=== PATIENT | male | born 1940 | race Caucasian/White ===

== ENCOUNTER 2020-10-01 09:00 | Inpatient (IN) | payer OTHER, BC ==
[2020-10-12 13:36] VITALS: BMI 26.1
[2020-10-16] MEDS ORDERED: DEXMEDETOMIDINE HCL 200 MCG/2 ML IVPB ONE (06:21)
[2020-10-16] MEDS ORDERED: ACETAMINOPHEN INJECTION 100 ML IVPB ONE ×2 (06:22→10:04)
[2020-10-16] MEDS ORDERED: ETOMIDATE 20 MG/10 ML AMPUL IVPUSH ONE (06:53)
[2020-10-16] MEDS ORDERED: TRANEXAMIC ACID 1000 MG/10 ML VIAL ONE (06:53)
[2020-10-16] MEDS ORDERED: LIDOCAINE HCL/PF 2% SDV 5ML VIAL ONE (06:53)
[2020-10-16] MEDS ORDERED: LIDOCAINE HCL 2% JELLY (5 ML/TUBE) ONE (06:53)
[2020-10-16] MEDS ORDERED: ceFAZolin SODIUM 1 GM VIAL ONE ×2 (06:53→11:06)
[2020-10-16] MEDS ORDERED: ONDANSETRON 4 MG/2 ML VIAL ONE (06:53)
[2020-10-16] MEDS ORDERED: EPHEDRINE SULFATE/0.9% NACL/PF 50 MG/10 ML SYRINGE NR ONE ×4 (06:55→13:21)
[2020-10-16] MEDS ORDERED: ROCURONIUM BROMIDE 50 MG/5 ML SYRINGE ONE (06:56)
[2020-10-16] MEDS ORDERED: SUCCINYLCHOLINE CHLORIDE 200 MG/10 ML SYRINGE ONE (06:56)
[2020-10-16] MEDS ORDERED: PROPOFOL 20 ML ONE ×3 (06:57)
[2020-10-16] MEDS ORDERED: KETAMINE HCL 200 MG/20 ML VIAL ONE (06:58)
[2020-10-16] MEDS ORDERED: BUPIVACAINE LIPOSOME/PF (EXPAREL) 266 MG/20 ML VIAL ONE (09:12)
[2020-10-16] MEDS ORDERED: GENTAMICIN SO4 80 MG/2 ML VIAL ONE (09:12)
[2020-10-16] MEDS ORDERED: THROMBIN (BOVINE) 5,000 UNIT VIAL TP ONE ×3 (09:13→14:32)
[2020-10-16] MEDS ORDERED: VANCOMYCIN 1,000 MG VIAL (RESTRICTED TO ID ONLY) ONE (09:21)
[2020-10-16] MEDS ORDERED: fentaNYL CITRATE 250 MCG/5 ML VIAL ONE (10:04)
[2020-10-16] MEDS ORDERED: MORPHINE 5 MG/10 ML AMP - FOR COMPOUNDING USE ONLY ONE (10:04)
[2020-10-16] MEDS ORDERED: ceFAZolin SODIUM 1 GM VIAL IVPB ONE ×2 (10:25→13:50)
[2020-10-16] MEDS ORDERED: VANCOMYCIN 1,000 MG VIAL (RESTRICTED TO ID ONLY) IVPB ONE (10:45)
[2020-10-16] MEDS ORDERED: LIDOCAINE 1%/EPI 1:100000 (50 ML MULTI DOSE VIAL) INF ONE (10:49)
[2020-10-16] MEDS ORDERED: GLYCOPYRROLATE 0.2 MG/1 ML VIAL ONE (11:00)
[2020-10-16] MEDS ORDERED: NEOSTIGMINE METHYLSULFATE 0.5 MG/1 ML - 10 ML MDV ONE (11:01)
[2020-10-16] MEDS ORDERED: BUPIVACAINE HCL/PF 0.5% (5MG/ML) 10 ML VIAL IJ ONE ×2 (11:27→14:50)
[2020-10-16] MEDS ORDERED: BUPIVACAINE LIPOSOME/PF (EXPAREL) 266 MG/20 ML VIAL IJ ONE ×2 (11:28→14:50)
[2020-10-16] MEDS ORDERED: ALBUMIN HUMAN 5% 250 ML IV SOLUTION IVPB ONE (14:30)
[2020-10-16] MEDS ORDERED: ePHEDrine SULFATE 50 MG/1 ML AMPULE ONE ×2 (15:02→16:07)
[2020-10-16] MEDS ORDERED: PATIENT'S OWN MEDICATION (NON-FORMULARY) (Omeprazole [Omeprazole] 20 MG Tablet.Dr) PO PRN (15:14)
[2020-10-16] MEDS ORDERED: MAG HYDROX/AL HYDROX/SIMETH 30 ML UNIT-DOSE CUP PO PRN (15:15)
[2020-10-16] MEDS ORDERED: MAGNESIUM HYDROX 2400MG/30ML ORAL SUSPENSION 30 ML CUP PO PRN (15:15)
[2020-10-16] MEDS ORDERED: ONDANSETRON 4 MG/2 ML VIAL IVPUSH PRN ×2 (15:15→17:15)
[2020-10-16] MEDS ORDERED: diphenhydrAMINE HCL 25 MG CAPSULE (FP) PO PRN (17:15)
[2020-10-16] MEDS ORDERED: HEPARIN NA (PORCINE) 5,000 UNITS/ML 1ML VIAL SQ SCH (17:15)
[2020-10-16] MEDS ORDERED: NALOXONE HCL 0.4 MG/ML VIAL IVPUSH PRN (17:19)
[2020-10-16 17:41] LABS: HEMATOCRIT 37.4 % (35.4-49); HEMOGLOBIN 12.3 GM/dL (11.7-16.9); MCHC 32.8 g/dl (32.0-35.9); MEAN CELL VOLUME 85.4 fl (80-96); MEAN PLT VOLUME 7.1 fl (7.5-11.1); PLATELET COUNT 136 K/MM3 (134-434); RBC 4.38 M/mm3 (4.00-5.60); RDW 14.5 % (11.9-15.9); WHITE BLOOD COUNT 4.9 K/mm3 (4.0-10.0)
[2020-10-16 18:04] LABS: LACTIC ACID 2.1 mmol/L (0.4-2.0)
[2020-10-16] MEDS: LACTATED RINGERS SOLUTION 1,000 ML IV SCH (20:57)
[2020-10-16] MEDS: CEFAZOLIN 2 GM/D5W 2 GM/50 ML ML IVPB SCH (20:57)
[2020-10-16] MEDS: GABAPENTIN 300 MG CAPSULE PO SCH (21:29)
[2020-10-16] MEDS: ACETAMINOPHEN 325 MG TABLET (FP) PO SCH (21:43)
[2020-10-16] MEDS: SENNOSIDES/DOCUSATE COMBO (SENNA PLUS) TABLET (UD) PO SCH (21:44)
[2020-10-16] MEDS: DOCUSATE SODIUM 100 MG CAPSULE (FP) PO SCH (21:44)
[2020-10-16] MEDS ORDERED: LATANOPROST SCH (22:00)
[2020-10-16] MEDS ORDERED: TAMSULOSIN HCL 0.4 MG CAP PO SCH (22:00)
[2020-10-16] MEDS ORDERED: ATORVASTATIN CA 40 MG TABLET (FP) PO SCH (22:00)
[2020-10-16] MEDS ORDERED: PATIENT'S OWN MEDICATION (NON-FORMULARY) (Dorzolamide/Timolol/Pf [Timolol 0.5%-Dorzolamide OP SCH (22:00)
[2020-10-16] MEDS: DIGOXIN 0.125 MG TABLET (FP) PO SCH (22:14)
[2020-10-16] MEDS: SOTALOL HCL 80 MG TABLET (FP) PO SCH (22:14)
[2020-10-16] MEDS: MUPIROCIN 2% TOPICAL OINTMENT FOR DECOLONIZATION NS SCH (22:49)
[2020-10-17 00:21] LABS: LACTIC ACID 2.5 mmol/L (0.4-2.0)
[2020-10-17] MEDS: ACETAMINOPHEN 325 MG TABLET (FP) PO SCH ×4 (00:44→16:55)
[2020-10-17] MEDS ORDERED: LACTATED RINGERS SOLUTION 1000 ML INFUS.BAG IV ONE (01:00)
[2020-10-17] MEDS: CEFAZOLIN 2 GM/D5W 2 GM/50 ML ML IVPB SCH ×2 (01:27→08:00)
[2020-10-17 03:34] LABS: BLOOD UREA NITROGEN 18.4 mg/dL (7-18)
[2020-10-17 03:38] LABS: CREATININE 1.3 mg/dL (0.55-1.3)
[2020-10-17 03:50] LABS: LACTIC ACID 4.8 mmol/L (0.4-2.0)
[2020-10-17 03:51] LABS: CALCIUM 7.6 mg/dL (8.5-10.1)
[2020-10-17] MEDS: LACTATED RINGERS SOLUTION 1,000 ML IV SCH (04:00)
[2020-10-17] MEDS: DOCUSATE SODIUM 100 MG CAPSULE (FP) PO SCH ×3 (05:29→21:37)
[2020-10-17 06:31] LABS: BASO % 0.2 % (0-2.0); EOS % 0.4 % (0-4.5); HEMATOCRIT 35.1 % (35.4-49); HEMOGLOBIN 11.7 GM/dL (11.7-16.9); LYMPH % 6.4 % (8-40); MCH 28.1 pg (25.7-33.7); MCH 28.3 pg (25.7-33.7); MCHC 33.2 g/dl (32.0-35.9); MCHC 33.3 g/dl (32.0-35.9); MEAN CELL VOLUME 84.3 fl (80-96); MEAN CELL VOLUME 85.1 fl (80-96); MEAN PLT VOLUME 7.2 fl (7.5-11.1); MEAN PLT VOLUME 7.3 fl (7.5-11.1); MONO % 8.8 % (3.8-10.2); NEUT % 84.2 % (42.8-82.8); PLATELET COUNT 124 K/MM3 (134-434); PLATELET COUNT 125 K/MM3 (134-434); RBC 4.13 M/mm3 (4.00-5.60); RBC 4.16 M/mm3 (4.00-5.60); RDW 14.1 % (11.9-15.9); RDW 14.7 % (11.9-15.9); WHITE BLOOD COUNT 6.1 K/mm3 (4.0-10.0); WHITE BLOOD COUNT 6.2 K/mm3 (4.0-10.0)
[2020-10-17 06:48] LABS: INR 1.23 (0.83-1.09)
[2020-10-17 06:50] LABS: ACTIVATED PTT 24.7 SECONDS (25.2-36.5)
[2020-10-17 06:51] LABS: BLOOD UREA NITROGEN 18.3 mg/dL (7-18); CALCIUM 7.4 mg/dL (8.5-10.1); MAGNESIUM 1.4 mg/dL (1.8-2.4)
[2020-10-17 06:54] LABS: CREATININE 1.1 mg/dL (0.55-1.3)
[2020-10-17 06:55] LABS: PHOSPHOROUS 4.1 mg/dL (2.5-4.9)
[2020-10-17 06:56] LABS: BILIRUBIN,TOTAL 0.5 mg/dL (0.2-1)
[2020-10-17 06:58] LABS: ALBUMIN 2.8 g/dl (3.4-5.0); TOT PROT 4.9 g/dl (6.4-8.2)
[2020-10-17] MEDS ORDERED: FERROUS SO4 325 MG TABLET (FP) PO SCH (10:00)
[2020-10-17] MEDS ORDERED: LISINOPRIL 5 MG TABLET PO SCH (10:00)
[2020-10-17] MEDS ORDERED: oxyCODONE HCL 5 MG TABLET PO PRN ×4 (10:00→13:33)
[2020-10-17] MEDS ORDERED: PANTOPRAZOLE 40 MG TABLET PO SCH (10:00)
[2020-10-17] MEDS ORDERED: MULTIVITAMINS (DAILY MVI) TABLET (FP) PO SCH (10:00)
[2020-10-17] MEDS ORDERED: FOLIC ACID 1 MG TABLET (FP) PO SCH (10:00)
[2020-10-17] MEDS: SOTALOL HCL 80 MG TABLET (FP) PO SCH ×2 (10:25→22:02)
[2020-10-17] MEDS: MUPIROCIN 2% TOPICAL OINTMENT FOR DECOLONIZATION NS SCH (10:25)
[2020-10-17] MEDS: DIGOXIN 0.125 MG TABLET (FP) PO SCH ×2 (10:26→21:38)
[2020-10-17] MEDS: GABAPENTIN 300 MG CAPSULE PO SCH ×2 (10:26→21:37)
[2020-10-17] MEDS: SENNOSIDES/DOCUSATE COMBO (SENNA PLUS) TABLET (UD) PO SCH ×2 (10:27→21:36)
[2020-10-17] MEDS ORDERED: oxyCODONE HCL 10 MG SUSTAINED ACTING TABLET PO SCH ×2 (12:00→22:00)
[2020-10-17] MEDS ORDERED: ONDANSETRON 4 MG/2 ML VIAL IVPUSH PRN ×2 (13:33)
[2020-10-17] MEDS ORDERED: diphenhydrAMINE HCL 25 MG CAPSULE (FP) PO PRN (13:33)
[2020-10-17] MEDS ORDERED: MAG HYDROX/AL HYDROX/SIMETH 30 ML UNIT-DOSE CUP PO PRN (13:33)
[2020-10-17] MEDS ORDERED: NALOXONE HCL 0.4 MG/ML VIAL IVPUSH PRN (13:33)
[2020-10-17] MEDS ORDERED: PT OWN MED DRAWER 7, Y5N ONE (21:02)
[2020-10-17] MEDS: ATORVASTATIN CA 40 MG TABLET (FP) PO SCH (21:37)
[2020-10-17] MEDS: TAMSULOSIN HCL 0.4 MG CAP PO SCH (21:42)
[2020-10-17] MEDS ORDERED: PATIENT'S OWN MEDICATION (NON-FORMULARY) (Dorzolamide/Timolol/Pf [Timolol 0.5%-Dorzolamide OP SCH (22:00)
[2020-10-17] MEDS ORDERED: MUPIROCIN 2% TOPICAL OINTMENT FOR DECOLONIZATION NS SCH (22:00)
[2020-10-17] MEDS ORDERED: CHLORHEXIDINE GLUCONATE 4% CLEANSER FOR DECOLONIZATION TP SCH ×2 (22:00)
[2020-10-17] MEDS ORDERED: LATANOPROST 0.005% OPHTH SOLN 2.5ML BOTTLE OU SCH (22:00)
[2020-10-18] MEDS: ACETAMINOPHEN 325 MG TABLET (FP) PO SCH ×2 (01:55→06:13)
[2020-10-18] MEDS: SODIUM CHLORIDE 1,000 ML IV SCH (03:50)
[2020-10-18] MEDS: DOCUSATE SODIUM 100 MG CAPSULE (FP) PO SCH ×3 (06:15→21:24)
[2020-10-18] MEDS ORDERED: diphenhydrAMINE HCL 25 MG CAPSULE (FP) PO PRN (08:35)
[2020-10-18] MEDS ORDERED: ACETAMINOPHEN 325 MG TABLET (FP) PO PRN (08:35)
[2020-10-18 09:18] LABS: HEMATOCRIT 30.2 % (35.4-49); MCH 28.3 pg (25.7-33.7); MCHC 33.1 g/dl (32.0-35.9); MEAN CELL VOLUME 85.4 fl (80-96); MEAN PLT VOLUME 7.5 fl (7.5-11.1); PLATELET COUNT 97 K/MM3 (134-434); RBC 3.53 M/mm3 (4.00-5.60); RDW 14.5 % (11.9-15.9); WHITE BLOOD COUNT 7.5 K/mm3 (4.0-10.0)
[2020-10-18] MEDS: GABAPENTIN 300 MG CAPSULE PO SCH ×2 (10:07→21:23)
[2020-10-18] MEDS: oxyCODONE HCL 10 MG SUSTAINED ACTING TABLET PO PRN ×2 (10:07→21:00)
[2020-10-18] MEDS: MULTIVITAMINS (DAILY MVI) TABLET (FP) PO SCH (10:10)
[2020-10-18] MEDS: SENNOSIDES/DOCUSATE COMBO (SENNA PLUS) TABLET (UD) PO SCH ×2 (10:10→21:23)
[2020-10-18] MEDS: DIGOXIN 0.125 MG TABLET (FP) PO SCH ×2 (10:10→21:22)
[2020-10-18] MEDS: PANTOPRAZOLE 40 MG TABLET PO SCH (10:11)
[2020-10-18] MEDS: FOLIC ACID 1 MG TABLET (FP) PO SCH (10:11)
[2020-10-18] MEDS: FERROUS SO4 325 MG TABLET (FP) PO SCH (10:15)
[2020-10-18] MEDS: LISINOPRIL 5 MG TABLET PO SCH (10:16)
[2020-10-18] MEDS ORDERED: PT OWN MED DRAWER 7, Y5N ONE ×2 (10:17→20:36)
[2020-10-18] MEDS: SOTALOL HCL 80 MG TABLET (FP) PO SCH ×2 (10:18→21:23)
[2020-10-18] MEDS: DORZOLAMIDE 2% HCL OPHTHALMIC SOLUTION 10 ML BOTTLE OU SCH ×2 (10:19→21:43)
[2020-10-18] MEDS: TIMOLOL 0.5% OPHTHALMIC SOL 5 ML BOTTLE OU SCH ×2 (10:26→21:43)
[2020-10-18] MEDS: oxyCODONE HCL 5 MG TABLET PO PRN (14:17)
[2020-10-18] MEDS ORDERED: MAGNESIUM SULF 50% (8.12 MEQ/2 ML-1 GM VIAL) IVPB ONE (17:31)
[2020-10-18] MEDS ORDERED: HALOPERIDOL LACTATE 5 MG/ML IM ONE (21:21)
[2020-10-18] MEDS: ATORVASTATIN CA 40 MG TABLET (FP) PO SCH (21:22)
[2020-10-18] MEDS: TAMSULOSIN HCL 0.4 MG CAP PO SCH (21:24)
[2020-10-18] MEDS: LATANOPROST 0.005% OPHTH SOLN 2.5ML BOTTLE OU SCH (21:43)
[2020-10-19] MEDS: SODIUM CHLORIDE 1,000 ML IV SCH (03:00)
[2020-10-19] MEDS: oxyCODONE HCL 5 MG TABLET PO PRN ×3 (05:30→21:35)
[2020-10-19] MEDS: DOCUSATE SODIUM 100 MG CAPSULE (FP) PO SCH (05:30)
[2020-10-19 08:44] LABS: HEMATOCRIT 32.3 % (35.4-49); HEMOGLOBIN 10.8 GM/dL (11.7-16.9); MCH 28.1 pg (25.7-33.7); MCHC 33.4 g/dl (32.0-35.9); MEAN CELL VOLUME 84.3 fl (80-96); MEAN PLT VOLUME 7.7 fl (7.5-11.1); PLATELET COUNT 112 K/MM3 (134-434); RBC 3.83 M/mm3 (4.00-5.60); RDW 14.2 % (11.9-15.9); WHITE BLOOD COUNT 9.8 K/mm3 (4.0-10.0)
[2020-10-19 09:08] LABS: BLOOD UREA NITROGEN 13.3 mg/dL (7-18); MAGNESIUM 2.3 mg/dL (1.8-2.4)
[2020-10-19 09:11] LABS: CREATININE 0.8 mg/dL (0.55-1.3); PHOSPHOROUS 1.4 mg/dL (2.5-4.9)
[2020-10-19] MEDS: DIGOXIN 0.125 MG TABLET (FP) PO SCH ×2 (11:23→21:38)
[2020-10-19] MEDS: FERROUS SO4 325 MG TABLET (FP) PO SCH (11:23)
[2020-10-19] MEDS: GABAPENTIN 300 MG CAPSULE PO SCH ×2 (11:24→21:34)
[2020-10-19] MEDS: SENNOSIDES/DOCUSATE COMBO (SENNA PLUS) TABLET (UD) PO SCH ×2 (11:24→21:35)
[2020-10-19] MEDS: RIVAROXABAN 20 MG TABLET PO SCH (11:24)
[2020-10-19] MEDS: MULTIVITAMINS (DAILY MVI) TABLET (FP) PO SCH (11:24)
[2020-10-19] MEDS: LISINOPRIL 5 MG TABLET PO SCH (11:24)
[2020-10-19] MEDS: POLYETHYLENE GLYCOL 3350 119 GM BTL PO SCH (11:25)
[2020-10-19] MEDS: FOLIC ACID 1 MG TABLET (FP) PO SCH (11:26)
[2020-10-19] MEDS: SOTALOL HCL 80 MG TABLET (FP) PO SCH ×2 (11:26→21:41)
[2020-10-19] MEDS: PANTOPRAZOLE 40 MG TABLET PO SCH (11:27)
[2020-10-19] MEDS: TIMOLOL 0.5% OPHTHALMIC SOL 5 ML BOTTLE OU SCH ×2 (11:27→21:39)
[2020-10-19] MEDS: DORZOLAMIDE 2% HCL OPHTHALMIC SOLUTION 10 ML BOTTLE OU SCH ×2 (11:28→21:39)
[2020-10-19] MEDS ORDERED: SODIUM PHOSPHATE - 30 MM in DEXTROSE 5%-WATER - 500 ML IVPB ONE (14:00)
[2020-10-19] MEDS ORDERED: RIVAROXABAN 20 MG TABLET PO SCH (18:00)
[2020-10-19] MEDS: TAMSULOSIN HCL 0.4 MG CAP PO SCH (21:34)
[2020-10-19] MEDS: ATORVASTATIN CA 40 MG TABLET (FP) PO SCH (21:35)
[2020-10-19] MEDS: LATANOPROST 0.005% OPHTH SOLN 2.5ML BOTTLE OU SCH (21:39)
[2020-10-19] MEDS ORDERED: PT OWN MED DRAWER 7, Y5N ONE (21:40)
[2020-10-19] MEDS ORDERED: HALOPERIDOL LACTATE 5 MG/ML IM ONE ×2 (22:41→23:24)
[2020-10-19] MEDS: MELATONIN 5 MG TABLETS PO ONE ×2 (23:34→23:45)
[2020-10-20] MEDS: SODIUM CHLORIDE 1,000 ML IV SCH (03:55)
[2020-10-20 08:12] LABS: BASO % 0.2 % (0-2.0); EOS % 0.2 % (0-4.5); HEMATOCRIT 29.7 % (35.4-49); HEMOGLOBIN 10.1 GM/dL (11.7-16.9); LYMPH % 12.3 % (8-40); MCH 28.7 pg (25.7-33.7); MCHC 34.1 g/dl (32.0-35.9); MEAN CELL VOLUME 84.2 fl (80-96); MONO % 8.9 % (3.8-10.2); NEUT % 78.4 % (42.8-82.8); PLATELET COUNT 126 K/MM3 (134-434); RBC 3.53 M/mm3 (4.00-5.60); RDW 14.2 % (11.9-15.9); WHITE BLOOD COUNT 7.9 K/mm3 (4.0-10.0)
[2020-10-20 08:58] LABS: ALBUMIN 2.6 g/dl (3.4-5.0); BLOOD UREA NITROGEN 12.2 mg/dL (7-18); CALCIUM 7.9 mg/dL (8.5-10.1)
[2020-10-20 08:59] LABS: BILIRUBIN,TOTAL 0.9 mg/dL (0.2-1)
[2020-10-20 09:00] LABS: CREATININE 0.6 mg/dL (0.55-1.3); TOT PROT 5.4 g/dl (6.4-8.2)
[2020-10-20 09:01] LABS: PHOSPHOROUS 1.5 mg/dL (2.5-4.9)
[2020-10-20] MEDS ORDERED: SODIUM PHOSPHATE - 30 MM in DEXTROSE 5%-WATER - 500 ML IVPB ONE (10:00)
[2020-10-20] MEDS ORDERED: PT OWN MED DRAWER 7, Y5N ONE ×2 (10:10→22:13)
[2020-10-20] MEDS: MAGNESIUM HYDROX 2400MG/30ML ORAL SUSPENSION 30 ML CUP PO PRN (10:19)
[2020-10-20] MEDS: oxyCODONE HCL 5 MG TABLET PO PRN ×2 (10:19→22:07)
[2020-10-20] MEDS: PANTOPRAZOLE 40 MG TABLET PO SCH (10:19)
[2020-10-20] MEDS: FOLIC ACID 1 MG TABLET (FP) PO SCH (10:19)
[2020-10-20] MEDS: LISINOPRIL 5 MG TABLET PO SCH (10:19)
[2020-10-20] MEDS: SENNOSIDES/DOCUSATE COMBO (SENNA PLUS) TABLET (UD) PO SCH ×2 (10:21→22:10)
[2020-10-20] MEDS: FERROUS SO4 325 MG TABLET (FP) PO SCH (10:21)
[2020-10-20] MEDS: MULTIVITAMINS (DAILY MVI) TABLET (FP) PO SCH (10:22)
[2020-10-20] MEDS: TIMOLOL 0.5% OPHTHALMIC SOL 5 ML BOTTLE OU SCH ×2 (10:22→22:11)
[2020-10-20] MEDS: DIGOXIN 0.125 MG TABLET (FP) PO SCH ×2 (10:22→22:09)
[2020-10-20] MEDS: DORZOLAMIDE 2% HCL OPHTHALMIC SOLUTION 10 ML BOTTLE OU SCH ×2 (10:23→22:12)
[2020-10-20] MEDS: RIVAROXABAN 20 MG TABLET PO SCH (10:23)
[2020-10-20] MEDS: POLYETHYLENE GLYCOL 3350 119 GM BTL PO SCH (10:25)
[2020-10-20] MEDS: SOTALOL HCL 80 MG TABLET (FP) PO SCH ×2 (10:26→22:13)
[2020-10-20] MEDS: TAMSULOSIN HCL 0.4 MG CAP PO SCH (22:09)
[2020-10-20] MEDS: QUEtiapine FUMARATE 25 MG TABLET PO SCH (22:09)
[2020-10-20] MEDS: GABAPENTIN 300 MG CAPSULE PO SCH (22:09)
[2020-10-20] MEDS: ATORVASTATIN CA 40 MG TABLET (FP) PO SCH (22:09)
[2020-10-20] MEDS: LATANOPROST 0.005% OPHTH SOLN 2.5ML BOTTLE OU SCH (22:12)
[2020-10-21] MEDS: SODIUM CHLORIDE 1,000 ML IV SCH (03:45)
[2020-10-21] MEDS: oxyCODONE HCL 5 MG TABLET PO PRN ×2 (08:22→18:53)
[2020-10-21] MEDS ORDERED: BISACODYL 10 MG SUPP.RECT PR ONE (09:04)
[2020-10-21 09:07] LABS: BASO % 0.4 % (0-2.0); EOS % 0.7 % (0-4.5); HEMATOCRIT 32.5 % (35.4-49); HEMOGLOBIN 10.8 GM/dL (11.7-16.9); LYMPH % 15.9 % (8-40); MCHC 33.3 g/dl (32.0-35.9); MEAN CELL VOLUME 84.1 fl (80-96); PLATELET COUNT 152 K/MM3 (134-434); RBC 3.86 M/mm3 (4.00-5.60); RDW 14.4 % (11.9-15.9); WHITE BLOOD COUNT 7.7 K/mm3 (4.0-10.0)
[2020-10-21] MEDS: DIGOXIN 0.125 MG TABLET (FP) PO SCH ×2 (09:39→21:12)
[2020-10-21] MEDS: PANTOPRAZOLE 40 MG TABLET PO SCH (09:39)
[2020-10-21] MEDS: SENNOSIDES/DOCUSATE COMBO (SENNA PLUS) TABLET (UD) PO SCH ×2 (09:39→21:12)
[2020-10-21] MEDS: MAGNESIUM HYDROX 2400MG/30ML ORAL SUSPENSION 30 ML CUP PO PRN (09:39)
[2020-10-21] MEDS: MULTIVITAMINS (DAILY MVI) TABLET (FP) PO SCH (09:39)
[2020-10-21] MEDS: FOLIC ACID 1 MG TABLET (FP) PO SCH (09:39)
[2020-10-21] MEDS: LISINOPRIL 5 MG TABLET PO SCH (09:39)
[2020-10-21] MEDS: TIMOLOL 0.5% OPHTHALMIC SOL 5 ML BOTTLE OU SCH ×2 (09:40→21:15)
[2020-10-21] MEDS: RIVAROXABAN 20 MG TABLET PO SCH (09:40)
[2020-10-21] MEDS: DORZOLAMIDE 2% HCL OPHTHALMIC SOLUTION 10 ML BOTTLE OU SCH ×2 (09:40→21:14)
[2020-10-21] MEDS: POLYETHYLENE GLYCOL 3350 119 GM BTL PO SCH (09:40)
[2020-10-21 09:47] LABS: ALBUMIN 2.4 g/dl (3.4-5.0); BLOOD UREA NITROGEN 13.5 mg/dL (7-18); MAGNESIUM 2.1 mg/dL (1.8-2.4)
[2020-10-21 09:48] LABS: BILIRUBIN,TOTAL 0.8 mg/dL (0.2-1); TOT PROT 5.7 g/dl (6.4-8.2)
[2020-10-21 09:50] LABS: CREATININE 0.8 mg/dL (0.55-1.3)
[2020-10-21 09:51] LABS: PHOSPHOROUS 1.7 mg/dL (2.5-4.9)
[2020-10-21] MEDS: SOTALOL HCL 80 MG TABLET (FP) PO SCH ×2 (10:06→21:38)
[2020-10-21] MEDS ORDERED: SODIUM PHOSPHATE - 30 MM in DEXTROSE 5%-WATER - 500 ML IVPB ONE (10:06)
[2020-10-21] MEDS: ATORVASTATIN CA 40 MG TABLET (FP) PO SCH (21:12)
[2020-10-21] MEDS: TAMSULOSIN HCL 0.4 MG CAP PO SCH (21:12)
[2020-10-21] MEDS: QUEtiapine FUMARATE 25 MG TABLET PO SCH (21:13)
[2020-10-21] MEDS: GABAPENTIN 300 MG CAPSULE PO SCH (21:13)
[2020-10-21] MEDS ORDERED: PT OWN MED DRAWER 7, Y5N ONE ×2 (21:34→21:56)
[2020-10-21 21:57] LABS: EPI CELLS 5 /uL (0-25.1); HYALINE CASTS 0 /uL (0-3.1); PH,URINE 7.5 (5.0-8.0); URINE APPEARANCE CLEAR; URINE BACTERIA 96 /uL (0-1359); URINE BILIRUBIN NEGATIVE (NEGATIVE); URINE COLOR YELLOW; URINE GLUCOSE (UA) NEGATIVE (NEGATIVE); URINE KETONE NEGATIVE (NEGATIVE); URINE LEUK ESTERASE NEGATIVE (NEGATIVE); URINE NITRITE NEGATIVE (NEGATIVE); URINE PROTEIN 1+ (NEGATIVE); URINE RBC 9 /uL (0-23.9); URINE UROBILINOGEN 0.2 mg/dL (0.2-1.0); URINE WBC 6 /uL (0-25.8)
[2020-10-21] MEDS: LATANOPROST 0.005% OPHTH SOLN 2.5ML BOTTLE OU SCH (22:17)
[2020-10-22] MEDS: SODIUM CHLORIDE 1,000 ML IV SCH ×2 (04:56→06:18)
[2020-10-22] MEDS: oxyCODONE HCL 5 MG TABLET PO PRN ×2 (07:39→17:49)
[2020-10-22 07:42] LABS: BASO % 0.2 % (0-2.0); EOS % 1.3 % (0-4.5); HEMATOCRIT 32.7 % (35.4-49); HEMOGLOBIN 10.9 GM/dL (11.7-16.9); LYMPH % 18.4 % (8-40); MCH 28.1 pg (25.7-33.7); MCHC 33.4 g/dl (32.0-35.9); MEAN CELL VOLUME 84.1 fl (80-96); MEAN PLT VOLUME 7.5 fl (7.5-11.1); MONO % 10.5 % (3.8-10.2); NEUT % 69.6 % (42.8-82.8); PLATELET COUNT 209 K/MM3 (134-434); RBC 3.89 M/mm3 (4.00-5.60); RDW 14.2 % (11.9-15.9); WHITE BLOOD COUNT 7.4 K/mm3 (4.0-10.0)
[2020-10-22 08:07] LABS: ALBUMIN 2.4 g/dl (3.4-5.0)
[2020-10-22 08:08] LABS: BLOOD UREA NITROGEN 11.8 mg/dL (7-18); CALCIUM 7.9 mg/dL (8.5-10.1); MAGNESIUM 2.3 mg/dL (1.8-2.4)
[2020-10-22 08:11] LABS: CREATININE 0.6 mg/dL (0.55-1.3); PHOSPHOROUS 2.2 mg/dL (2.5-4.9)
[2020-10-22 08:12] LABS: BILIRUBIN,TOTAL 0.7 mg/dL (0.2-1); TOT PROT 5.6 g/dl (6.4-8.2)
[2020-10-22] MEDS: FOLIC ACID 1 MG TABLET (FP) PO SCH (09:37)
[2020-10-22] MEDS: RIVAROXABAN 20 MG TABLET PO SCH (09:37)
[2020-10-22] MEDS: DIGOXIN 0.125 MG TABLET (FP) PO SCH ×2 (09:37→21:29)
[2020-10-22] MEDS: LISINOPRIL 5 MG TABLET PO SCH (09:37)
[2020-10-22] MEDS: SENNOSIDES/DOCUSATE COMBO (SENNA PLUS) TABLET (UD) PO SCH ×2 (09:37→21:21)
[2020-10-22] MEDS: PANTOPRAZOLE 40 MG TABLET PO SCH (09:38)
[2020-10-22] MEDS: MULTIVITAMINS (DAILY MVI) TABLET (FP) PO SCH (09:38)
[2020-10-22] MEDS ORDERED: PT OWN MED DRAWER 7, Y5N ONE (09:39)
[2020-10-22] MEDS: SOTALOL HCL 80 MG TABLET (FP) PO SCH ×2 (09:40→21:26)
[2020-10-22] MEDS: TIMOLOL 0.5% OPHTHALMIC SOL 5 ML BOTTLE OU SCH ×2 (09:42→21:26)
[2020-10-22] MEDS: DORZOLAMIDE 2% HCL OPHTHALMIC SOLUTION 10 ML BOTTLE OU SCH ×2 (09:43→21:26)
[2020-10-22] MEDS: POLYETHYLENE GLYCOL 3350 119 GM BTL PO SCH (09:52)
[2020-10-22] MEDS ORDERED: NAPH,MB-DB/K PH,MBDB POWDER PACKET PO ONE (10:27)
[2020-10-22] MEDS: ATORVASTATIN CA 40 MG TABLET (FP) PO SCH (21:21)
[2020-10-22] MEDS: TAMSULOSIN HCL 0.4 MG CAP PO SCH (21:21)
[2020-10-22] MEDS: QUEtiapine FUMARATE 25 MG TABLET PO SCH (21:21)
[2020-10-22] MEDS: LATANOPROST 0.005% OPHTH SOLN 2.5ML BOTTLE OU SCH (21:26)
[2020-10-22] MEDS: ACETAMINOPHEN 325 MG TABLET (FP) PO PRN (21:29)
[2020-10-23] MEDS: SODIUM CHLORIDE 1,000 ML IV SCH (03:55)
[2020-10-23] MEDS: oxyCODONE HCL 5 MG TABLET PO PRN (06:05)
[2020-10-23] MEDS ORDERED: PT OWN MED DRAWER 7, Y5N ONE (09:53)
[2020-10-23] MEDS: SENNOSIDES/DOCUSATE COMBO (SENNA PLUS) TABLET (UD) PO SCH (09:54)
[2020-10-23] MEDS: PANTOPRAZOLE 40 MG TABLET PO SCH (09:54)
[2020-10-23] MEDS: DIGOXIN 0.125 MG TABLET (FP) PO SCH (09:54)
[2020-10-23] MEDS: RIVAROXABAN 20 MG TABLET PO SCH (09:54)
[2020-10-23] MEDS: SOTALOL HCL 80 MG TABLET (FP) PO SCH (09:54)
[2020-10-23] MEDS: MULTIVITAMINS (DAILY MVI) TABLET (FP) PO SCH (09:54)
[2020-10-23] MEDS: FOLIC ACID 1 MG TABLET (FP) PO SCH (09:55)
[2020-10-23] MEDS: LISINOPRIL 5 MG TABLET PO SCH (09:55)
[2020-10-23] MEDS: POLYETHYLENE GLYCOL 3350 119 GM BTL PO SCH (09:55)
[2020-10-23] MEDS: DORZOLAMIDE 2% HCL OPHTHALMIC SOLUTION 10 ML BOTTLE OU SCH (09:57)
[2020-10-23] MEDS: TIMOLOL 0.5% OPHTHALMIC SOL 5 ML BOTTLE OU SCH (09:57)
[2020-10-23 11:20] LABS: BASO % 0.3 % (0-2.0); EOS % 0.9 % (0-4.5); HEMATOCRIT 33.5 % (35.4-49); LYMPH % 16.6 % (8-40); MCH 27.9 pg (25.7-33.7); MCHC 32.9 g/dl (32.0-35.9); MEAN CELL VOLUME 84.6 fl (80-96); MEAN PLT VOLUME 7.5 fl (7.5-11.1); MONO % 9.9 % (3.8-10.2); NEUT % 72.3 % (42.8-82.8); PLATELET COUNT 302 K/MM3 (134-434); RBC 3.96 M/mm3 (4.00-5.60); RDW 14.2 % (11.9-15.9); WHITE BLOOD COUNT 7.9 K/mm3 (4.0-10.0)
[2020-10-23 11:45] LABS: ALBUMIN 2.4 g/dl (3.4-5.0); BLOOD UREA NITROGEN 14.1 mg/dL (7-18); CALCIUM 8.3 mg/dL (8.5-10.1); MAGNESIUM 2.2 mg/dL (1.8-2.4)
[2020-10-23 11:49] LABS: CREATININE 0.7 mg/dL (0.55-1.3)
[2020-10-23 11:50] LABS: BILIRUBIN,TOTAL 0.5 mg/dL (0.2-1); TOT PROT 5.8 g/dl (6.4-8.2)
[2020-10-23] MEDS: ACETAMINOPHEN 325 MG TABLET (FP) PO PRN (14:05)
[2020-10-23 14:29] VITALS: BP 131/73; PULSE 80; TEMP 98
== END 2020-10-23 17:28 | disposition home or self-care (01) | DRG 457 ==
LOC: J2C 10-16 05:13 → JICU 10-16 20:43 → J6S 10-17 15:27
PROVIDERS: ADMIT Neurological Surgery; ATTEND Internal Medicine
PROC: 0QP005Z Removal of External Fixation Device from Lumbar Vertebra, Open Approach (ICD-10-PCS; 2020-10-16)
PROC: 0SG1071 Fusion of 2 or more Lumbar Vertebral Joints with Autologous Tissue Substitute, Posterior Approach, Posterior Column, Open Approach (ICD-10-PCS; 2020-10-16)
PROC: 0SG3071 Fusion of Lumbosacral Joint with Autologous Tissue Substitute, Posterior Approach, Posterior Column, Open Approach (ICD-10-PCS; 2020-10-16)
PROC: B01BZZZ Fluoroscopy of Spinal Cord (ICD-10-PCS; 2020-10-16)
PROC: 4A1004G Monitoring of Central Nervous Electrical Activity, Intraoperative, Open Approach (ICD-10-PCS; 2020-10-16)
PROC: 0RGA071 Fusion of Thoracolumbar Vertebral Joint with Autologous Tissue Substitute, Posterior Approach, Posterior Column, Open Approach (ICD-10-PCS; principal; 2020-10-16 09:30)
DX: M41.86 Other forms of scoliosis, lumbar region (principal); E87.2 Acidosis; K91.89 Other postprocedural complications and disorders of digestive system; K56.7 Ileus, unspecified; I10 Essential (primary) hypertension; E78.5 Hyperlipidemia, unspecified; I48.91 Unspecified atrial fibrillation; R41.0 Disorientation, unspecified; D69.6 Thrombocytopenia, unspecified; E83.42 Hypomagnesemia; M47.26 Other spondylosis with radiculopathy, lumbar region; R45.1 Restlessness and agitation; Y83.9 Surgical procedure, unspecified as the cause of abnormal reaction of the patient, or of later complication, without mention of misadventure at the time of the procedure; H40.9 Unspecified glaucoma
CPT/HCPCS: 36415; 36430; 71046-TC-FY; 72131-TC; 74018-TC-FY; 80048; 80053; 80162; 81003; 82962; 83605; 83735; 84100; 85025; 85027; 85610; 85730; 86850; 86900; 86901; 86922; 87086; 87186; 93005; 93010; 94760; 97116-GP; 97161-GP; C9803; J0131; P9017; P9058; U0003; U0005

== ENCOUNTER 2021-05-04 04:09 | Inpatient (IN) | payer OTHER, BC ==
[2021-04-28 10:28] VITALS: BMI 25.0
[2021-05-04] MEDS ORDERED: ACETAMINOPHEN INJECTION 100 ML IVPB ONE (07:05)
[2021-05-04] MEDS ORDERED: DEXMEDETOMIDINE HCL 200 MCG/2 ML IVPB ONE (07:05)
[2021-05-04] MEDS ORDERED: GENTAMICIN SO4 80 MG/2 ML VIAL ONE (07:23)
[2021-05-04] MEDS ORDERED: LIDOCAINE 1%/EPI 1:100000 (20 ML MULTI DOSE VIAL) ONE (07:23)
[2021-05-04] MEDS ORDERED: THROMBIN (BOVINE) 20,000 UNIT VIAL TP ONE (07:23)
[2021-05-04] MEDS ORDERED: BUPIVACAINE LIPOSOME/PF (EXPAREL) 266 MG/20 ML VIAL ONE (07:24)
[2021-05-04] MEDS ORDERED: BUPIVACAINE HCL/PF 0.5% (5MG/ML) 10 ML VIAL ONE (07:24)
[2021-05-04] MEDS ORDERED: KETAMINE HCL 200 MG/20 ML VIAL ONE (07:26)
[2021-05-04] MEDS ORDERED: PROPOFOL 20 ML ONE ×2 (07:26)
[2021-05-04] MEDS ORDERED: fentaNYL CITRATE 250 MCG/5 ML VIAL ONE (07:26)
[2021-05-04] MEDS ORDERED: VANCOMYCIN 1,000 MG VIAL (RESTRICTED TO ID ONLY) ONE (08:21)
[2021-05-04] MEDS ORDERED: MORPHINE 5 MG/10 ML AMP - FOR COMPOUNDING USE ONLY ONE (08:38)
[2021-05-04] MEDS ORDERED: ceFAZolin SODIUM 1 GM VIAL IVPB ONE ×2 (09:00→12:00)
[2021-05-04] MEDS ORDERED: LIDOCAINE 1%/EPI 1:100000 (20 ML MULTI DOSE VIAL) IJ ONE (09:32)
[2021-05-04] MEDS ORDERED: HYDROGEN PEROXIDE 473 ML PO ONE (09:40)
[2021-05-04] MEDS ORDERED: THROMBIN (BOVINE) 5,000 UNIT VIAL TP ONE (09:40)
[2021-05-04] MEDS ORDERED: VANCOMYCIN 1,000 MG VIAL (RESTRICTED TO ID ONLY) IVPB ONE (09:40)
[2021-05-04] MEDS ORDERED: GENTAMICIN SO4 80 MG/2 ML VIAL IVPB ONE (09:40)
[2021-05-04] MEDS ORDERED: ROCURONIUM BROMIDE 50 MG/5 ML SYRINGE ONE (09:41)
[2021-05-04] MEDS ORDERED: ONDANSETRON 4 MG/2 ML VIAL ONE (11:24)
[2021-05-04] MEDS ORDERED: TRANEXAMIC ACID 1000 MG/10 ML VIAL ONE (11:24)
[2021-05-04] MEDS ORDERED: ceFAZolin SODIUM 1 GM VIAL ONE ×2 (11:24→17:22)
[2021-05-04] MEDS ORDERED: oxyCODONE HCL 5 MG TABLET PO PRN ×2 (12:28)
[2021-05-04] MEDS ORDERED: ONDANSETRON 4 MG/2 ML VIAL IVPUSH PRN ×2 (12:28→15:06)
[2021-05-04] MEDS ORDERED: BUPIVACAINE LIPOSOME/PF (EXPAREL) 266 MG/20 ML VIAL NR ONE (12:30)
[2021-05-04] MEDS ORDERED: BUPIVACAINE HCL/PF 0.5% (5MG/ML) 10 ML VIAL IJ ONE (12:30)
[2021-05-04] MEDS ORDERED: LACTATED RINGERS SOLUTION 1,000 ML/1,000 ML INFUS.BAG IV SCH (12:30)
[2021-05-04] MEDS ORDERED: DEXTROSE 5%-WATER 100 ML IVPB ONE (17:22)
[2021-05-04] MEDS: CEFAZOLIN 1 GM in DEXTROSE 5%-WATER 100 ML IVPB SCH (17:43)
[2021-05-04] MEDS: LACTATED RINGERS SOLUTION 1,000 ML IV SCH (17:46)
[2021-05-04] MEDS: DOCUSATE SODIUM 100 MG CAPSULE (FP) PO SCH ×2 (17:48→22:01)
[2021-05-04] MEDS: HEPARIN NA (PORCINE) 5,000 UNITS/ML 1ML VIAL SQ SCH ×3 (19:46→21:40)
[2021-05-04] MEDS: morphine SULFATE 4 MG/ML VIAL IVPUSH PRN (21:12)
[2021-05-04] MEDS ORDERED: ATORVASTATIN CA 40 MG TABLET (FP) PO SCH (22:00)
[2021-05-04] MEDS ORDERED: TAMSULOSIN HCL 0.4 MG CAP PO SCH (22:00)
[2021-05-04] MEDS ORDERED: LATANOPROST 0.005% OPHTH SOLN 2.5ML BOTTLE OU SCH (22:00)
[2021-05-04] MEDS ORDERED: PATIENT'S OWN MEDICATION (NON-FORMULARY) (Dorzolamide/Timolol/Pf [Timolol 0.5%-Dorzolamide OU SCH (22:00)
[2021-05-04] MEDS ORDERED: CHLORHEXIDINE GLUCONATE 4% CLEANSER FOR DECOLONIZATION TP SCH (22:00)
[2021-05-04] MEDS: DORZOLAMIDE 2% HCL OPHTHALMIC SOLUTION 10 ML BOTTLE OU SCH (22:01)
[2021-05-04] MEDS: SOTALOL HCL 80 MG TABLET (FP) PO SCH (22:01)
[2021-05-04] MEDS: MUPIROCIN 2% TOPICAL OINTMENT FOR DECOLONIZATION NS SCH (22:01)
[2021-05-04] MEDS: TIMOLOL 0.5% OPHTHALMIC SOL 5 ML BOTTLE OU SCH (22:02)
[2021-05-05] MEDS ORDERED: DEXTROSE 5%-WATER 100 ML IVPB ONE ×3 (01:55→17:49)
[2021-05-05] MEDS ORDERED: ceFAZolin SODIUM 1 GM VIAL ONE ×3 (01:55→17:49)
[2021-05-05] MEDS: CEFAZOLIN 1 GM in DEXTROSE 5%-WATER 100 ML IVPB SCH ×3 (01:59→17:50)
[2021-05-05] MEDS: LACTATED RINGERS SOLUTION 1,000 ML IV SCH ×3 (02:26→19:35)
[2021-05-05] MEDS: HEPARIN NA (PORCINE) 5,000 UNITS/ML 1ML VIAL SQ SCH (04:06)
[2021-05-05] MEDS: diphenhydrAMINE HCL 25 MG CAPSULE (FP) PO PRN ×2 (04:17→09:26)
[2021-05-05] MEDS: DOCUSATE SODIUM 100 MG CAPSULE (FP) PO SCH ×3 (05:32→21:30)
[2021-05-05 07:05] LABS: HEMATOCRIT 32.9 % (35.4-49); MCH 28.1 pg (25.7-33.7); MCHC 33.3 g/dl (32.0-35.9); MEAN CELL VOLUME 84.4 fl (80-96); MEAN PLT VOLUME 7.7 fl (7.5-11.1); PLATELET COUNT 139 10^3/uL (134-434); RDW 13.6 % (11.9-15.9); WHITE BLOOD COUNT 6.2 K/mm3 (4.0-10.0)
[2021-05-05 07:21] LABS: CALCIUM 8.5 mg/dL (8.5-10.1)
[2021-05-05 07:22] LABS: BLOOD UREA NITROGEN 14.5 mg/dL (7-18)
[2021-05-05] MEDS: morphine SULFATE 4 MG/ML VIAL IVPUSH PRN ×2 (09:05→13:21)
[2021-05-05] MEDS ORDERED: PT OWN MED DRAWER 7, Y5N ONE ×2 (09:18→21:28)
[2021-05-05] MEDS: SOTALOL HCL 80 MG TABLET (FP) PO SCH (09:23)
[2021-05-05] MEDS: TIMOLOL 0.5% OPHTHALMIC SOL 5 ML BOTTLE OU SCH (09:25)
[2021-05-05] MEDS: DORZOLAMIDE 2% HCL OPHTHALMIC SOLUTION 10 ML BOTTLE OU SCH (09:25)
[2021-05-05] MEDS: MUPIROCIN 2% TOPICAL OINTMENT FOR DECOLONIZATION NS SCH (09:27)
[2021-05-05] MEDS ORDERED: LISINOPRIL 5 MG TABLET PO SCH (10:00)
[2021-05-05] MEDS ORDERED: DIGOXIN 0.125 MG TABLET PO SCH (10:00)
[2021-05-05] MEDS ORDERED: FERROUS SO4 325 MG TABLET (FP) PO SCH (10:00)
[2021-05-05] MEDS ORDERED: PANTOPRAZOLE 40 MG TABLET PO SCH (10:00)
[2021-05-05] MEDS ORDERED: FOLIC ACID 1 MG TABLET (FP) PO SCH (10:00)
[2021-05-05] MEDS ORDERED: ACETAMINOPHEN 1000 MG/100 ML VIAL IVPB ONE (10:35)
[2021-05-05] MEDS ORDERED: diphenhydrAMINE HCL 25 MG CAPSULE (FP) PO PRN (17:11)
[2021-05-05] MEDS ORDERED: morphine SULFATE 4 MG/ML VIAL IVPUSH PRN (17:11)
[2021-05-05] MEDS ORDERED: ONDANSETRON 4 MG/2 ML VIAL IVPUSH PRN (17:11)
[2021-05-05] MEDS ORDERED: oxyCODONE HCL 5 MG TABLET PO PRN ×2 (17:11)
[2021-05-05] MEDS ORDERED: CHLORHEXIDINE GLUCONATE 4% CLEANSER FOR DECOLONIZATION TP SCH (22:00)
[2021-05-05] MEDS ORDERED: MUPIROCIN 2% TOPICAL OINTMENT FOR DECOLONIZATION NS SCH (22:00)
[2021-05-05] MEDS ORDERED: LATANOPROST 0.005% OPHTH SOLN 2.5ML BOTTLE OU SCH (22:00)
[2021-05-05] MEDS ORDERED: TIMOLOL 0.5% OPHTHALMIC SOL 5 ML BOTTLE OU SCH (22:00)
[2021-05-05] MEDS ORDERED: ATORVASTATIN CA 40 MG TABLET (FP) PO SCH (22:00)
[2021-05-05] MEDS ORDERED: DORZOLAMIDE 2% HCL OPHTHALMIC SOLUTION 10 ML BOTTLE OU SCH (22:00)
[2021-05-05] MEDS ORDERED: SOTALOL HCL 80 MG TABLET (FP) PO SCH (22:00)
[2021-05-05] MEDS ORDERED: TAMSULOSIN HCL 0.4 MG CAP PO SCH (22:00)
[2021-05-06] MEDS: LACTATED RINGERS SOLUTION 1,000 ML IV SCH (00:58)
[2021-05-06] MEDS ORDERED: MELATONIN 5 MG TABLETS PO PRN (01:39)
[2021-05-06] MEDS ORDERED: DEXTROSE 5%-WATER 100 ML IVPB ONE ×3 (01:54→16:41)
[2021-05-06] MEDS ORDERED: ceFAZolin SODIUM 1 GM VIAL ONE ×3 (01:54→16:41)
[2021-05-06] MEDS: CEFAZOLIN 1 GM in DEXTROSE 5%-WATER 100 ML IVPB SCH ×3 (01:56→17:01)
[2021-05-06] MEDS: DOCUSATE SODIUM 100 MG CAPSULE (FP) PO SCH ×3 (05:59→21:08)
[2021-05-06] MEDS ORDERED: LACTATED RINGERS SOLUTION 1,000 ML IV SCH (08:17)
[2021-05-06] MEDS ORDERED: ONDANSETRON 4 MG/2 ML VIAL IVPUSH PRN (08:17)
[2021-05-06] MEDS ORDERED: diphenhydrAMINE HCL 25 MG CAPSULE (FP) PO PRN (08:17)
[2021-05-06] MEDS ORDERED: PANTOPRAZOLE 40 MG TABLET PO SCH (10:00)
[2021-05-06] MEDS ORDERED: LISINOPRIL 5 MG TABLET PO SCH (10:00)
[2021-05-06] MEDS ORDERED: FOLIC ACID 1 MG TABLET (FP) PO SCH (10:00)
[2021-05-06] MEDS ORDERED: FERROUS SO4 325 MG TABLET (FP) PO SCH (10:00)
[2021-05-06] MEDS ORDERED: DIGOXIN 0.125 MG TABLET PO SCH (10:00)
[2021-05-06] MEDS ORDERED: PT OWN MED DRAWER 7, Y5N ONE ×2 (10:08→21:06)
[2021-05-06] MEDS: PANTOPRAZOLE 40 MG TABLET PO SCH (10:43)
[2021-05-06] MEDS: FERROUS SO4 325 MG TABLET (FP) PO SCH (10:43)
[2021-05-06] MEDS: LISINOPRIL 5 MG TABLET PO SCH (10:43)
[2021-05-06] MEDS: FOLIC ACID 1 MG TABLET (FP) PO SCH (10:43)
[2021-05-06] MEDS: DIGOXIN 0.125 MG TABLET PO SCH (10:43)
[2021-05-06] MEDS: morphine SULFATE 4 MG/ML VIAL IVPUSH PRN ×2 (10:44→16:45)
[2021-05-06] MEDS: SOTALOL HCL 80 MG TABLET (FP) PO SCH ×2 (10:44→21:07)
[2021-05-06] MEDS: MUPIROCIN 2% TOPICAL OINTMENT FOR DECOLONIZATION NS SCH ×2 (10:46→21:08)
[2021-05-06] MEDS: TIMOLOL 0.5% OPHTHALMIC SOL 5 ML BOTTLE OU SCH ×2 (10:46→21:08)
[2021-05-06 10:47] LABS: HEMATOCRIT 28.8 % (35.4-49); HEMOGLOBIN 9.6 GM/dL (11.7-16.9); MCH 28.1 pg (25.7-33.7); MCHC 33.4 g/dl (32.0-35.9); MEAN PLT VOLUME 7.6 fl (7.5-11.1); PLATELET COUNT 122 10^3/uL (134-434); RBC 3.42 M/mm3 (4.00-5.60); RDW 13.5 % (11.9-15.9); WHITE BLOOD COUNT 9.6 K/mm3 (4.0-10.0)
[2021-05-06] MEDS: DORZOLAMIDE 2% HCL OPHTHALMIC SOLUTION 10 ML BOTTLE OU SCH ×2 (10:47→21:08)
[2021-05-06 11:07] LABS: ALBUMIN 2.3 g/dl (3.4-5.0); BLOOD UREA NITROGEN 12.1 mg/dL (7-18); CALCIUM 8.4 mg/dL (8.5-10.1)
[2021-05-06 11:10] LABS: CREATININE 0.9 mg/dL (0.55-1.3)
[2021-05-06 11:12] LABS: BILIRUBIN,TOTAL 0.4 mg/dL (0.2-1)
[2021-05-06] MEDS ORDERED: BISACODYL 10 MG SUPP.RECT PR ONE (12:08)
[2021-05-06] MEDS: RIVAROXABAN 20 MG TABLET PO SCH (17:01)
[2021-05-06] MEDS ORDERED: RIVAROXABAN 20 MG TABLET PO SCH (18:00)
[2021-05-06] MEDS: TAMSULOSIN HCL 0.4 MG CAP PO SCH (21:07)
[2021-05-06] MEDS: ATORVASTATIN CA 40 MG TABLET (FP) PO SCH (21:07)
[2021-05-06] MEDS: LATANOPROST 0.005% OPHTH SOLN 2.5ML BOTTLE OU SCH (21:08)
[2021-05-06] MEDS: CHLORHEXIDINE GLUCONATE 4% CLEANSER FOR DECOLONIZATION TP SCH (21:08)
[2021-05-06] MEDS: ACETAMINOPHEN 325 MG TABLET (FP) PO PRN (22:57)
[2021-05-07] MEDS ORDERED: ceFAZolin SODIUM 1 GM VIAL ONE ×3 (01:21→17:23)
[2021-05-07] MEDS ORDERED: DEXTROSE 5%-WATER 100 ML IVPB ONE ×3 (01:21→17:23)
[2021-05-07] MEDS: CEFAZOLIN 1 GM in DEXTROSE 5%-WATER 100 ML IVPB SCH ×3 (01:33→17:25)
[2021-05-07] MEDS: DOCUSATE SODIUM 100 MG CAPSULE (FP) PO SCH ×3 (06:22→21:07)
[2021-05-07 07:35] LABS: BASO % 0.1 % (0-2.0); EOS % 0.3 % (0-4.5); HEMATOCRIT 30.1 % (35.4-49); HEMOGLOBIN 10.1 GM/dL (11.7-16.9); LYMPH % 13.8 % (8-40); MCH 27.9 pg (25.7-33.7); MCHC 33.6 g/dl (32.0-35.9); MEAN CELL VOLUME 83.1 fl (80-96); MEAN PLT VOLUME 7.8 fl (7.5-11.1); MONO % 8.8 % (3.8-10.2); PLATELET COUNT 126 10^3/uL (134-434); RBC 3.62 M/mm3 (4.00-5.60); RDW 13.8 % (11.9-15.9); WHITE BLOOD COUNT 9.9 K/mm3 (4.0-10.0)
[2021-05-07 07:51] LABS: CALCIUM 8.6 mg/dL (8.5-10.1)
[2021-05-07 07:52] LABS: ALBUMIN 2.3 g/dl (3.4-5.0); BLOOD UREA NITROGEN 11.7 mg/dL (7-18)
[2021-05-07 07:55] LABS: CREATININE 0.7 mg/dL (0.55-1.3)
[2021-05-07 07:56] LABS: BILIRUBIN,TOTAL 0.4 mg/dL (0.2-1); TOT PROT 5.2 g/dl (6.4-8.2)
[2021-05-07] MEDS: SOTALOL HCL 80 MG TABLET (FP) PO SCH ×2 (10:50→21:07)
[2021-05-07] MEDS: MUPIROCIN 2% TOPICAL OINTMENT FOR DECOLONIZATION NS SCH ×2 (10:50→21:08)
[2021-05-07] MEDS: FOLIC ACID 1 MG TABLET (FP) PO SCH (10:50)
[2021-05-07] MEDS: POLYETHYLENE GLYCOL (HEALTHYLAX) 3350 17 GM PACKET PO SCH (10:51)
[2021-05-07] MEDS: PANTOPRAZOLE 40 MG TABLET PO SCH (10:51)
[2021-05-07] MEDS: FERROUS SO4 325 MG TABLET (FP) PO SCH (10:51)
[2021-05-07] MEDS: DIGOXIN 0.125 MG TABLET PO SCH (10:51)
[2021-05-07] MEDS: DORZOLAMIDE 2% HCL OPHTHALMIC SOLUTION 10 ML BOTTLE OU SCH ×2 (10:52→21:08)
[2021-05-07] MEDS: LISINOPRIL 5 MG TABLET PO SCH (10:52)
[2021-05-07] MEDS: TIMOLOL 0.5% OPHTHALMIC SOL 5 ML BOTTLE OU SCH ×2 (10:53→21:08)
[2021-05-07] MEDS: oxyCODONE HCL 5 MG TABLET PO PRN (14:03)
[2021-05-07] MEDS: RIVAROXABAN 20 MG TABLET PO SCH (17:25)
[2021-05-07] MEDS ORDERED: SIMETHICONE 80 MG TAB.CHEW (FP) PO ONE (18:04)
[2021-05-07] MEDS: morphine SULFATE 4 MG/ML VIAL IVPUSH PRN (18:04)
[2021-05-07] MEDS ORDERED: PT OWN MED DRAWER 7, Y5N ONE (21:05)
[2021-05-07] MEDS: ATORVASTATIN CA 40 MG TABLET (FP) PO SCH (21:07)
[2021-05-07] MEDS: TAMSULOSIN HCL 0.4 MG CAP PO SCH (21:08)
[2021-05-07] MEDS: LATANOPROST 0.005% OPHTH SOLN 2.5ML BOTTLE OU SCH (21:09)
[2021-05-07] MEDS: CHLORHEXIDINE GLUCONATE 4% CLEANSER FOR DECOLONIZATION TP SCH (23:03)
[2021-05-08] MEDS ORDERED: ceFAZolin SODIUM 1 GM VIAL ONE ×3 (01:08→16:43)
[2021-05-08] MEDS ORDERED: DEXTROSE 5%-WATER 100 ML IVPB ONE ×3 (01:08→16:43)
[2021-05-08] MEDS: CEFAZOLIN 1 GM in DEXTROSE 5%-WATER 100 ML IVPB SCH ×3 (01:18→17:43)
[2021-05-08] MEDS: DOCUSATE SODIUM 100 MG CAPSULE (FP) PO SCH ×3 (05:17→21:19)
[2021-05-08] MEDS: oxyCODONE HCL 5 MG TABLET PO PRN ×3 (05:20→17:44)
[2021-05-08] MEDS ORDERED: PT OWN MED DRAWER 7, Y5N ONE ×2 (09:08→21:24)
[2021-05-08] MEDS: POLYETHYLENE GLYCOL (HEALTHYLAX) 3350 17 GM PACKET PO SCH (09:23)
[2021-05-08] MEDS: SOTALOL HCL 80 MG TABLET (FP) PO SCH ×2 (09:24→21:25)
[2021-05-08] MEDS: PANTOPRAZOLE 40 MG TABLET PO SCH (09:24)
[2021-05-08] MEDS: MUPIROCIN 2% TOPICAL OINTMENT FOR DECOLONIZATION NS SCH ×2 (09:24→21:22)
[2021-05-08] MEDS: DIGOXIN 0.125 MG TABLET PO SCH (09:24)
[2021-05-08] MEDS: FOLIC ACID 1 MG TABLET (FP) PO SCH (09:24)
[2021-05-08] MEDS: FERROUS SO4 325 MG TABLET (FP) PO SCH (09:24)
[2021-05-08] MEDS: LISINOPRIL 5 MG TABLET PO SCH (09:24)
[2021-05-08] MEDS: TIMOLOL 0.5% OPHTHALMIC SOL 5 ML BOTTLE OU SCH ×2 (09:25→21:20)
[2021-05-08] MEDS: morphine SULFATE 4 MG/ML VIAL IVPUSH PRN (09:25)
[2021-05-08] MEDS: DORZOLAMIDE 2% HCL OPHTHALMIC SOLUTION 10 ML BOTTLE OU SCH ×2 (09:25→21:21)
[2021-05-08 11:32] LABS: HEMATOCRIT 29.5 % (35.4-49); HEMOGLOBIN 9.7 GM/dL (11.7-16.9); MCH 27.5 pg (25.7-33.7); MCHC 32.9 g/dl (32.0-35.9); MEAN CELL VOLUME 83.7 fl (80-96); PLATELET COUNT 166 10^3/uL (134-434); RBC 3.52 M/mm3 (4.00-5.60); RDW 13.7 % (11.9-15.9); WHITE BLOOD COUNT 8.1 K/mm3 (4.0-10.0)
[2021-05-08 11:39] LABS: ALBUMIN 2.2 g/dl (3.4-5.0); CALCIUM 8.6 mg/dL (8.5-10.1); CREATININE 0.9 mg/dL (0.55-1.3)
[2021-05-08 11:41] LABS: BILIRUBIN,TOTAL 0.4 mg/dL (0.2-1); TOT PROT 5.4 g/dl (6.4-8.2)
[2021-05-08 11:46] LABS: BLOOD UREA NITROGEN 13.8 mg/dL (7-18)
[2021-05-08] MEDS: RIVAROXABAN 20 MG TABLET PO SCH (17:44)
[2021-05-08] MEDS: TAMSULOSIN HCL 0.4 MG CAP PO SCH (21:19)
[2021-05-08] MEDS: ATORVASTATIN CA 40 MG TABLET (FP) PO SCH (21:19)
[2021-05-08] MEDS: LATANOPROST 0.005% OPHTH SOLN 2.5ML BOTTLE OU SCH (21:20)
[2021-05-08] MEDS: CHLORHEXIDINE GLUCONATE 4% CLEANSER FOR DECOLONIZATION TP SCH (21:22)
[2021-05-09] MEDS ORDERED: ceFAZolin SODIUM 1 GM VIAL ONE ×2 (01:36→10:04)
[2021-05-09] MEDS ORDERED: DEXTROSE 5%-WATER 100 ML IVPB ONE ×2 (01:37→10:04)
[2021-05-09] MEDS: CEFAZOLIN 1 GM in DEXTROSE 5%-WATER 100 ML IVPB SCH ×2 (01:41→10:10)
[2021-05-09] MEDS: oxyCODONE HCL 5 MG TABLET PO PRN (02:05)
[2021-05-09] MEDS: DOCUSATE SODIUM 100 MG CAPSULE (FP) PO SCH ×2 (06:00→13:11)
[2021-05-09 09:05] VITALS: TEMP 98.8
[2021-05-09] MEDS ORDERED: PT OWN MED DRAWER 7, Y5N ONE (10:06)
[2021-05-09] MEDS: FERROUS SO4 325 MG TABLET (FP) PO SCH (10:10)
[2021-05-09] MEDS: LISINOPRIL 5 MG TABLET PO SCH (10:10)
[2021-05-09] MEDS: PANTOPRAZOLE 40 MG TABLET PO SCH (10:10)
[2021-05-09] MEDS: POLYETHYLENE GLYCOL (HEALTHYLAX) 3350 17 GM PACKET PO SCH (10:10)
[2021-05-09] MEDS: SOTALOL HCL 80 MG TABLET (FP) PO SCH (10:10)
[2021-05-09] MEDS: DIGOXIN 0.125 MG TABLET PO SCH (10:11)
[2021-05-09] MEDS: ACETAMINOPHEN 325 MG TABLET (FP) PO PRN (10:11)
[2021-05-09] MEDS: FOLIC ACID 1 MG TABLET (FP) PO SCH (10:11)
[2021-05-09] MEDS: MUPIROCIN 2% TOPICAL OINTMENT FOR DECOLONIZATION NS SCH (10:12)
[2021-05-09] MEDS: DORZOLAMIDE 2% HCL OPHTHALMIC SOLUTION 10 ML BOTTLE OU SCH (10:33)
[2021-05-09] MEDS: TIMOLOL 0.5% OPHTHALMIC SOL 5 ML BOTTLE OU SCH (10:33)
[2021-05-09 14:09] VITALS: BP 102/40; PULSE 78
[2021-05-09] MEDS ORDERED: MINERAL OIL ENEMA 133 ML ENEMA RC ONE (14:30)
[2021-05-11] MEDS ORDERED: ERGOCALCIFEROL (VIT D2) 50,000 UNIT (1.25 MG) CAPSULE PO SCH ×3 (10:00)
== END 2021-05-09 15:00 | DRG 457 ==
LOC: J2C 04:09 → JICU 16:04 → J5S 05-07 13:25
PROVIDERS: ADMIT Neurological Surgery
PROC: 0SG1071 Fusion of 2 or more Lumbar Vertebral Joints with Autologous Tissue Substitute, Posterior Approach, Posterior Column, Open Approach (ICD-10-PCS; 2021-05-04)
PROC: 0RGA071 Fusion of Thoracolumbar Vertebral Joint with Autologous Tissue Substitute, Posterior Approach, Posterior Column, Open Approach (ICD-10-PCS; 2021-05-04)
PROC: 0SG3071 Fusion of Lumbosacral Joint with Autologous Tissue Substitute, Posterior Approach, Posterior Column, Open Approach (ICD-10-PCS; 2021-05-04)
PROC: 07DR0ZZ Extraction of Iliac Bone Marrow, Open Approach (ICD-10-PCS; 2021-05-04)
PROC: 4A11X4G Monitoring of Peripheral Nervous Electrical Activity, Intraoperative, External Approach (ICD-10-PCS; 2021-05-04)
PROC: 0RG7071 Fusion of 2 to 7 Thoracic Vertebral Joints with Autologous Tissue Substitute, Posterior Approach, Posterior Column, Open Approach (ICD-10-PCS; principal; 2021-05-04 08:00)
DX: M47.816 Spondylosis without myelopathy or radiculopathy, lumbar region (principal); S22.089A Unspecified fracture of T11-T12 vertebra, initial encounter for closed fracture; M48.56XA Collapsed vertebra, not elsewhere classified, lumbar region, initial encounter for fracture; M41.84 Other forms of scoliosis, thoracic region; M41.85 Other forms of scoliosis, thoracolumbar region; M41.86 Other forms of scoliosis, lumbar region; M41.87 Other forms of scoliosis, lumbosacral region; I10 Essential (primary) hypertension; E78.5 Hyperlipidemia, unspecified; I48.91 Unspecified atrial fibrillation; Z79.01 Long term (current) use of anticoagulants; N20.0 Calculus of kidney; X58.XXXA Exposure to other specified factors, initial encounter; Y93.9 Activity, unspecified; Y92.9 Unspecified place or not applicable; Y99.9 Unspecified external cause status
CPT/HCPCS: 36415; 72128-TC; 72131-TC; 76000-TC-FY; 80048; 80053; 85025; 85027; 86922; 93005; 93010; 94760; 97116-GP; 97162-GP; J0131; P9017

== ENCOUNTER 2024-08-20 05:20 | Inpatient (IN) | payer OTHER, BC ==
[2024-08-16 09:42] VITALS: BMI 22.1
[2024-08-20] MEDS: GABAPENTIN 300 MG CAPSULE PO ONE (06:50)
[2024-08-20] MEDS ORDERED: VANCOMYCIN 1,000 MG VIAL (RESTRICTED TO ID ONLY) ONE (06:58)
[2024-08-20] MEDS ORDERED: GENTAMICIN SO4 80 MG/2 ML VIAL ONE (06:58)
[2024-08-20] MEDS ORDERED: LIDOCAINE 1%/EPI 1:100000 (20 ML MULTI DOSE VIAL) ONE (06:58)
[2024-08-20] MEDS ORDERED: BUPIVACAINE LIPOSOME/PF (EXPAREL) 266 MG/20 ML VIAL ONE (06:59)
[2024-08-20] MEDS ORDERED: BUPIVACAINE HCL/PF 0.5% (5MG/ML) 10 ML VIAL ONE (06:59)
[2024-08-20] MEDS ORDERED: DEXMEDETOMIDINE HCL 200 MCG/2 ML IVPB ONE (08:15)
[2024-08-20] MEDS ORDERED: DEXAMETHASONE SOD PHOSPHATE 10 MG/1 ML VIAL ONE (08:16)
[2024-08-20] MEDS ORDERED: ceFAZolin SODIUM 1 GM VIAL ONE (08:33)
[2024-08-20] MEDS: LIDOCAINE 1%/EPI 1:100000 (20 ML MULTI DOSE VIAL) IJ ONE (08:52)
[2024-08-20] MEDS: ceFAZolin SODIUM 1 GM VIAL IVPB ONE (08:53)
[2024-08-20] MEDS: VANCOMYCIN 1 GM in NS (PRE-DOCKED) 1,000 MG/250 ML (RESTRICTED TO ID ONLY) IVPB ONE (09:03)
[2024-08-20] MEDS ORDERED: HYDROmorphone HCl 2 MG/ML VIAL ONE (09:06)
[2024-08-20] MEDS: THROMBIN (BOVINE) 20,000 UNIT VIAL TP ONE ×2 (09:19→10:00)
[2024-08-20] MEDS: GENTAMICIN 80MG PREMIX BAG IVPB ONE ×2 (09:20→10:20)
[2024-08-20] MEDS: HYDROGEN PEROXIDE 473 ML PO ONE ×2 (09:20→10:20)
[2024-08-20] MEDS ORDERED: ROCURONIUM BROMIDE 50 MG/5 ML SYRINGE ONE (09:35)
[2024-08-20] MEDS: BUPIVACAINE LIPOSOME/PF (EXPAREL) 266 MG/20 ML VIAL NR ONE ×2 (11:25→11:40)
[2024-08-20] MEDS: VANCOMYCIN 1 GM in D5W (PRE-DOCKED) 1,000 MG/250 ML (RESTRICTED TO ID ONLY IVPB ONE (11:25)
[2024-08-20] MEDS: BUPIVACAINE HCL/PF 0.5% (5MG/ML) 10 ML VIAL IJ ONE ×2 (11:26→11:40)
[2024-08-20] MEDS ORDERED: PROPOFOL 20 ML ONE (12:38)
[2024-08-20] MEDS ORDERED: ONDANSETRON 4 MG/2 ML VIAL IVPUSH PRN ×2 (13:02→13:10)
[2024-08-20] MEDS ORDERED: diphenhydrAMINE HCL 25 MG CAPSULE (FP) PO PRN (13:10)
[2024-08-20] MEDS ORDERED: oxyCODONE HCL 5 MG TABLET PO PRN (13:10)
[2024-08-20] MEDS ORDERED: PANTOPRAZOLE 40 MG TABLET PO PRN (13:14)
[2024-08-20] MEDS: LACTATED RINGERS SOLUTION 1,000 ML/1,000 ML INFUS.BAG IV SCH (14:09)
[2024-08-20] MEDS ORDERED: ACETAMINOPHEN INJECTION 100 ML ONE (14:22)
[2024-08-20 14:23] LABS: HEMATOCRIT 39.3 % (40.1-51.0); HEMOGLOBIN 12.2 g/dL (13.7-17.5); MEAN CELL VOLUME 86.4 fl (79.0-92.2); MEAN PLT VOLUME 9.7 fl (9.4-12.4); PLATELET COUNT # 140 x10^3/uL (163-337); RDW 13.4 % (12.6-16.6)
[2024-08-20] MEDS: ACETAMINOPHEN 1000 MG/100 ML BAG IVPB ONE ×2 (15:35→17:12)
[2024-08-20] MEDS: DOCUSATE SODIUM 100 MG CAPSULE (FP) PO SCH (17:13)
[2024-08-20] MEDS: HEPARIN NA (PORCINE) 5,000 UNITS/ML 1ML VIAL SQ SCH ×2 (17:13→23:29)
[2024-08-20] MEDS: CEFAZOLIN 1 GM/D5W 1 GM/50 ML BAG IVPB SCH (17:40)
[2024-08-20] MEDS: ATORVASTATIN CA 80 MG TABLET (FP) PO SCH (21:37)
[2024-08-20] MEDS: SOTALOL HCL 80 MG TABLET (FP) PO SCH (21:37)
[2024-08-20] MEDS: DORZOLAMIDE HCL/TIMOLOL OPHTHALMIC SOLUTION 10 ML BOTTLE OU SCH (21:38)
[2024-08-20] MEDS: LATANOPROST 0.005% OPHTH SOLN 2.5ML BOTTLE OU SCH (21:38)
[2024-08-20] MEDS: TAMSULOSIN HCL 0.4 MG CAP PO SCH (21:39)
[2024-08-20] MEDS: DIGOXIN 0.125 MG TABLET PO SCH (21:53)
[2024-08-21] MEDS: QUEtiapine FUMARATE 25 MG TABLET PO ONE ×2 (02:06→19:41)
[2024-08-21] MEDS: hydrOXYzine HCL 100 MG/2 ML VIAL IM ONE (03:04)
[2024-08-21] MEDS: HALOPERIDOL LACTATE 5 MG/ML IM ONE (09:28)
[2024-08-21] MEDS ORDERED: POLYETHYLENE GLYCOL (HEALTHYLAX) 3350 17 GM PACKET PO PRN (10:00)
[2024-08-21 11:13] LABS: HEMATOCRIT 32.9 % (40.1-51.0); HEMOGLOBIN 10.6 g/dL (13.7-17.5); MCHC 32.2 g/dl (32.3-36.5); MEAN CELL VOLUME 84.4 fl (79.0-92.2); MEAN PLT VOLUME 9.8 fl (9.4-12.4); PLATELET COUNT # 139 x10^3/uL (163-337); RDW 13.5 % (12.6-16.6)
[2024-08-21] MEDS: FERROUS SO4 325 MG TABLET (FP) PO SCH (11:16)
[2024-08-21] MEDS: FOLIC ACID 1 MG TABLET (FP) PO SCH (11:16)
[2024-08-21] MEDS: LISINOPRIL 5 MG TABLET PO SCH (11:16)
[2024-08-21] MEDS: LACTOBACILLUS ACIDOPHILUS 1 TABLET PO SCH (11:16)
[2024-08-21 11:45] LABS: BLOOD UREA NITROGEN 25.8 mg/dL (7-18); CALCIUM 8.6 mg/dL (8.5-10.1)
[2024-08-21 11:49] LABS: CREATININE 1.1 mg/dL (0.55-1.3)
[2024-08-21] MEDS: morphine SULFATE 4 MG/ML VIAL IVPUSH PRN (15:45)
[2024-08-21] MEDS ORDERED: QUEtiapine FUMARATE 25 MG TABLET PO SCH (22:00)
[2024-08-22] MEDS: HALOPERIDOL LACTATE 5 MG/ML IM ONE (01:05)
[2024-08-22 08:35] LABS: ABSOLUTE IMMATURE GRANULOCYTES 0.04 x10^3/uL (0.0-0.031); BASOPHILS # 0.02 x10^3/uL (0.01-0.08); EOSINOPHIL % 0.2 % (0.8-7.0); EOSINOPHILS # 0.02 x10^3/uL (0.04-0.54); HEMATOCRIT 31.8 % (40.1-51.0); HEMOGLOBIN 10.1 g/dL (13.7-17.5); MCHC 31.8 g/dl (32.3-36.5); MEAN CELL VOLUME 84.6 fl (79.0-92.2); MEAN PLT VOLUME 10.2 fl (9.4-12.4); MONOCYTE # 1.19 x10^3/uL (0.30-0.82); MONOCYTE % 12.2 % (5.3-12.2); PLATELET COUNT # 109 x10^3/uL (163-337); RDW 13.8 % (12.6-16.6)
[2024-08-22 08:55] LABS: POTASSIUM 3.9 mmol/L (3.5-5.1)
[2024-08-22 09:02] LABS: BLOOD UREA NITROGEN 21.5 mg/dL (7-18)
[2024-08-22 09:03] LABS: CALCIUM 8.5 mg/dL (8.5-10.1); MAGNESIUM 2.1 mg/dL (1.8-2.4)
[2024-08-22 09:04] LABS: ALBUMIN 2.8 g/dl (3.4-5.0)
[2024-08-22 09:06] LABS: CREATININE 0.9 mg/dL (0.55-1.3)
[2024-08-22 09:07] LABS: BILIRUBIN,TOTAL 0.8 mg/dL (0.2-1); TOT PROT 5.4 g/dl (6.4-8.2)
[2024-08-22] MEDS ORDERED: QUEtiapine FUMARATE 25 MG TABLET PO SCH (10:00)
[2024-08-22] MEDS: QUEtiapine FUMARATE 25 MG TABLET PO SCH ×2 (10:01→21:08)
[2024-08-22] MEDS: oxyCODONE HCL 5 MG TABLET PO PRN (11:01)
[2024-08-22 14:32] VITALS: RESP 18
[2024-08-22] MEDS: MAGNESIUM GLYCINATE 100 MG PO SCH (15:32)
[2024-08-22] MEDS: traMADol HCL 50 MG TABLET PO PRN (19:34)
[2024-08-22] MEDS ORDERED: DIGOXIN 0.125 MG TABLET PO SCH (22:00)
[2024-08-23] MEDS: DIGOXIN 0.125 MG TABLET PO SCH (09:19)
[2024-08-23] MEDS: PANTOPRAZOLE 40 MG TABLET PO SCH (09:19)
[2024-08-23 09:22] LABS: ABSOLUTE IMMATURE GRANULOCYTES 0.02 x10^3/uL (0.0-0.031); BASOPHILS # 0.03 x10^3/uL (0.01-0.08); EOSINOPHIL % 0.5 % (0.8-7.0); EOSINOPHILS # 0.05 x10^3/uL (0.04-0.54); HEMATOCRIT 32.9 % (40.1-51.0); HEMOGLOBIN 10.6 g/dL (13.7-17.5); MCHC 32.2 g/dl (32.3-36.5); MEAN CELL VOLUME 84.1 fl (79.0-92.2); MEAN PLT VOLUME 10.5 fl (9.4-12.4); MONOCYTE # 1.05 x10^3/uL (0.30-0.82); MONOCYTE % 10.9 % (5.3-12.2); PLATELET COUNT # 132 x10^3/uL (163-337); RDW 13.2 % (12.6-16.6)
[2024-08-23 09:48] LABS: POTASSIUM 3.7 mmol/L (3.5-5.1)
[2024-08-23 09:57] LABS: CALCIUM 8.6 mg/dL (8.5-10.1)
[2024-08-23 09:58] LABS: ALBUMIN 2.8 g/dl (3.4-5.0); BLOOD UREA NITROGEN 17.2 mg/dL (7-18); MAGNESIUM 2.1 mg/dL (1.8-2.4)
[2024-08-23 10:01] LABS: CREATININE 0.8 mg/dL (0.55-1.3)
[2024-08-23 10:02] LABS: BILIRUBIN,TOTAL 0.9 mg/dL (0.2-1)
[2024-08-23 10:03] LABS: TOT PROT 5.7 g/dl (6.4-8.2)
[2024-08-23] MEDS: CLOPIDOGREL BISULFATE 75 MG TABLET (FP) PO SCH (11:41)
[2024-08-23] MEDS: RIVAROXABAN 20 MG TABLET PO SCH (17:13)
[2024-08-23 19:53] VITALS: BP 135/72; PULSE 76; TEMP 98.8
== END 2024-08-23 20:03 | DRG 457 ==
LOC: J2C 05:20 → J8W 16:32
PROVIDERS: ATTEND Nurse Practitioner Acute Care
PROC: 0SG3071 Fusion of Lumbosacral Joint with Autologous Tissue Substitute, Posterior Approach, Posterior Column, Open Approach (ICD-10-PCS; 2024-08-20)
PROC: 0RG7071 Fusion of 2 to 7 Thoracic Vertebral Joints with Autologous Tissue Substitute, Posterior Approach, Posterior Column, Open Approach (ICD-10-PCS; 2024-08-20)
PROC: 0RGA071 Fusion of Thoracolumbar Vertebral Joint with Autologous Tissue Substitute, Posterior Approach, Posterior Column, Open Approach (ICD-10-PCS; 2024-08-20)
PROC: 01NB0ZZ Release Lumbar Nerve, Open Approach (ICD-10-PCS; 2024-08-20)
PROC: 0QP004Z Removal of Internal Fixation Device from Lumbar Vertebra, Open Approach (ICD-10-PCS; 2024-08-20)
PROC: 0PP404Z Removal of Internal Fixation Device from Thoracic Vertebra, Open Approach (ICD-10-PCS; 2024-08-20)
PROC: 4A11X4G Monitoring of Peripheral Nervous Electrical Activity, Intraoperative, External Approach (ICD-10-PCS; 2024-08-20)
PROC: 0SG1071 Fusion of 2 or more Lumbar Vertebral Joints with Autologous Tissue Substitute, Posterior Approach, Posterior Column, Open Approach (ICD-10-PCS; principal; 2024-08-20 08:00)
DX: M43.06 Spondylolysis, lumbar region (principal); F05 Delirium due to known physiological condition; I48.91 Unspecified atrial fibrillation; I11.0 Hypertensive heart disease with heart failure; E78.5 Hyperlipidemia, unspecified; I25.10 Atherosclerotic heart disease of native coronary artery without angina pectoris; N40.0 Benign prostatic hyperplasia without lower urinary tract symptoms; M41.86 Other forms of scoliosis, lumbar region; I50.9 Heart failure, unspecified; H40.9 Unspecified glaucoma; Z95.5 Presence of coronary angioplasty implant and graft
CPT/HCPCS: 36415; 72128-TC; 72131-TC; 76000-TC-FY; 80048; 80053; 80162; 83735; 85025; 85027; 86922; 87635; 93005; 93010; 94760; 97116-GP; 97161-GP; C1713; C1889; J0131; J0666; J1100; J1644

== ENCOUNTER 2024-08-25 00:29 | Observation (INO) | payer OTHER, BC ==
[2024-08-25 00:57] VITALS: BMI 23.6
[2024-08-25] MEDS: ACETAMINOPHEN 1000 MG/100 ML BAG IVPB ONE (02:20)
[2024-08-25] MEDS ORDERED: ACETAMINOPHEN INJECTION 100 ML ONE (02:42)
[2024-08-25 03:01] LABS: ABSOLUTE IMMATURE GRANULOCYTES 0.02 x10^3/uL (0.0-0.031); BASOPHILS # 0.02 x10^3/uL (0.01-0.08); EOSINOPHIL % 1.4 % (0.8-7.0); HEMATOCRIT 31.4 % (40.1-51.0); HEMOGLOBIN 9.8 g/dL (13.7-17.5); MCHC 31.2 g/dl (32.3-36.5); MEAN CELL VOLUME 85.8 fl (79.0-92.2); MEAN PLT VOLUME 9.7 fl (9.4-12.4); MONOCYTE # 0.88 x10^3/uL (0.30-0.82); MONOCYTE % 12.1 % (5.3-12.2); PLATELET COUNT # 171 x10^3/uL (163-337); RDW 13.2 % (12.6-16.6)
[2024-08-25 03:17] LABS: POTASSIUM 4.1 mmol/L (3.5-5.1)
[2024-08-25 03:19] LABS: ALBUMIN 2.9 g/dl (3.4-5.0); BLOOD UREA NITROGEN 18.3 mg/dL (7-18); CALCIUM 9.1 mg/dL (8.5-10.1)
[2024-08-25 03:22] LABS: CREATININE 0.9 mg/dL (0.55-1.3)
[2024-08-25 03:24] LABS: BILIRUBIN,TOTAL 0.7 mg/dL (0.2-1); TOT PROT 6.2 g/dl (6.4-8.2)
[2024-08-25] MEDS ORDERED: NITROGLYCERIN SUBLINGUAL 1/150 0.4 MG TAB SL PRN (04:10)
[2024-08-25] MEDS ORDERED: morphine SULFATE 4 MG/ML VIAL IVPUSH PRN (04:17)
[2024-08-25] MEDS ORDERED: DOCUSATE SODIUM 100 MG CAPSULE (FP) PO PRN (04:56)
[2024-08-25] MEDS: morphine CARPU-JECT 4 MG/1 ML DISP.SYRIN IVPUSH ONE (05:03)
[2024-08-25] MEDS ORDERED: ATORVASTATIN CA 40 MG TABLET (FP) ONE (05:04)
[2024-08-25] MEDS: ATORVASTATIN CA 40 MG TABLET (FP) PO ONE (05:08)
[2024-08-25 05:18] LABS: INR 1.45 (0.83-1.09); PROTHROMBIN TIME (PATIENT) 15.9 SEC (9.7-13.0)
[2024-08-25 05:20] LABS: ACTIVATED PTT 32.7 SECONDS (25.2-36.5)
[2024-08-25 05:22] LABS: MAGNESIUM 2.1 mg/dL (1.8-2.4)
[2024-08-25] MEDS ORDERED: TAMSULOSIN HCL 0.4 MG CAP ONE (08:21)
[2024-08-25] MEDS: TAMSULOSIN HCL 0.4 MG CAP PO SCH (08:48)
[2024-08-25] MEDS ORDERED: MAGNESIUM GLYCINATE 100 MG PO SCH (10:00)
[2024-08-25] MEDS ORDERED: ENOXAPARIN NA (PORCINE) 40 MG/0.4 ML DISP.SYRIN SQ SCH (10:00)
[2024-08-25] MEDS: SOTALOL HCL 80 MG TABLET (FP) PO SCH (10:57)
[2024-08-25] MEDS: DIGOXIN 0.125 MG TABLET PO SCH (10:57)
[2024-08-25] MEDS: MULTIVITAMINS (DAILY MVI) TABLET (FP) PO SCH (10:58)
[2024-08-25] MEDS: ASPIRIN COATED 81 MG TABLET.EC PO SCH (10:58)
[2024-08-25] MEDS: LISINOPRIL 5 MG TABLET PO SCH (10:58)
[2024-08-25] MEDS: PANTOPRAZOLE 40 MG TABLET PO SCH (10:58)
[2024-08-25] MEDS: CLOPIDOGREL BISULFATE 75 MG TABLET (FP) PO SCH (10:58)
[2024-08-25] MEDS: POLYETHYLENE GLYCOL (HEALTHYLAX) 3350 17 GM PACKET PO SCH (10:58)
[2024-08-25] MEDS: LACTOBACILLUS ACIDOPHILUS 1 TABLET PO SCH (10:58)
[2024-08-25] MEDS ORDERED: METOPROLOL TARTRATE 25 MG TABLET (FP) PO PRN (11:19)
[2024-08-25] MEDS: METOPROLOL TARTRATE 25 MG TABLET (FP) PO ONE (12:36)
[2024-08-25] MEDS ORDERED: ACETAMINOPHEN 325 MG TABLET (FP) PO PRN (14:13)
[2024-08-25] MEDS: DORZOLAMIDE HCL/TIMOLOL OPHTHALMIC SOLUTION 10 ML BOTTLE OU SCH (17:00)
[2024-08-25] MEDS: RIVAROXABAN 20 MG TABLET PO SCH (17:57)
[2024-08-25] MEDS: ATORVASTATIN CA 80 MG TABLET (FP) PO SCH (21:43)
[2024-08-25] MEDS: LATANOPROST 0.005% OPHTH SOLN 2.5ML BOTTLE OU SCH (22:51)
[2024-08-26 11:27] VITALS: RESP 17
[2024-08-26 11:27] LABS: ALBUMIN 2.8 g/dl (3.4-5.0)
[2024-08-26 11:31] LABS: BILIRUBIN,DIRECT 0.2 mg/dL (0.0-0.2); BILIRUBIN,TOTAL 0.9 mg/dL (0.2-1); TOT PROT 5.9 g/dl (6.4-8.2)
[2024-08-26 14:18] VITALS: BP 96/58; PULSE 81; TEMP 98.4
[2024-08-26 15:32] LABS: HCV DIAGNOSTIC IN-HOUSE W/RFLX NON-REACTIVE (NONREACTIVE)
== END 2024-08-26 14:19 | disposition home or self-care (01) ==
LOC: JER 00:29 → JERBED 04:01 → J4W 09:03
PROVIDERS: ADMIT Hospitalist; ATTEND Internal Medicine
PROC: 3E033NZ Introduction of Analgesics, Hypnotics, Sedatives into Peripheral Vein, Percutaneous Approach (ICD-10-PCS; principal; 2024-08-25)
DX: I48.91 Unspecified atrial fibrillation (principal); I11.9 Hypertensive heart disease without heart failure; E78.5 Hyperlipidemia, unspecified; Z98.1 Arthrodesis status; Z91.013 Allergy to seafood
CPT/HCPCS: 36415; 71045-TC-FY; 76705-TC; 80053; 80061; 80076; 80162; 82550; 82553; 83735; 84436; 84439; 84443; 84484; 85025; 85610; 85730; 86704; 86709; 86803; 87340; 87517; 93005; 93010; 93306-TC; 96374; 99285-25; G0378; J0131